=== PATIENT | female | born 1960 | race Caucasian/White ===

== ENCOUNTER 2017-11-25 05:25 | Day surgery (SDC) | payer OTHER ==
[2017-11-25] MEDS ORDERED: DIBUCAINE30 GM RECTAL (09:36)
[2017-11-25] MEDS ORDERED: PERCOCET 5-3251 EACH PO (09:37)
== END 2017-11-25 12:10 | disposition home or self-care (01) ==
LOC: CIR.AMB 05:25
DX: K64.4 Residual hemorrhoidal skin tags (principal)

== ENCOUNTER 2017-12-07 11:51 | Emergency (ER) | payer OTHER ==
[~2017-12-07] VITALS: Ht 154.9 cm; Wt 63.0 kg
[~2017-12-07 11:51] MED LIST: DIBUCAINE30 GM RECTAL; PERCOCET 5-3251 EACH PO
[2017-12-07] MEDS ORDERED: CLONAZEPAM1 M1 (12:12)
[2017-12-07] MEDS ORDERED: NORVASC5 MG (12:12)
[2017-12-07] MEDS ORDERED: TOPROL XL25 MG (12:13)
[2017-12-07] MEDS ORDERED: SYNTHROID50 MCG (12:13)
== END 2017-12-07 16:07 | disposition home or self-care (01) ==
LOC: ER 11:51
DX: K62.5 Hemorrhage of anus and rectum (principal)